=== PATIENT | male | born 1955 | race Caucasian/White ===

== ENCOUNTER 2017-11-02 21:12 | Emergency (ER) | END 2017-11-02 23:02 | disposition home or self-care (01) ==

== ENCOUNTER 2018-02-07 21:48 | Emergency (ER) | END 2018-02-08 05:09 | disposition short-term general hospital (02) ==

== ENCOUNTER 2018-03-11 20:47 | Emergency (ER) | END 2018-03-12 01:20 | disposition home or self-care (01) ==